=== PATIENT | female | born 1960 | race Caucasian/White ===

== ENCOUNTER → 2017-04-17 | Outpatient (CLI) | payer OTHER ==
[~2017-04-17] VITALS: Ht 152.4 cm; Wt 49.9 kg
[~2017-04-17] MED LIST: BENTYL 20 MG TA20 M1 PO; COZAAR 50 MG TA50 M2 PO; IRON325 PO; METFORMIN HCL500 MG PO; PAXIL10 MG PO; PROAIR RESPICL90 MCG IH; PROTONIX40 M1 PO; REGLAN 10 MG TA10 MG PO; REQUIP XL2 MG PO; ROSUVASTATIN CA20 MG PO; SENOKOT-S1 TA1 PO; SINGULAIR 10 MG10 M1 PO; SPIRIVA INH; TOPROL XL25 MG PO; TRICOR145 MG PO; ZETIA10 MG PO
--- NOTE | ~2017-04-17 | H ---
[facility] [place] [address] HISTORY AND PHYSICAL Name: BRUNO JUARES Room #: REG [facility]#: [id number] Admission: 04/17/17 Attend Phys: Walter Noavk Discharge: Date of : 62 Report #: [id number] THIS REPORT FOR: //name// CC: Walter Miller HISTORY OF PRESENT ILLNESS: This 56-year-old female patient seen in the office for chest pain and non-significant aortic valvular disease. The patient underwent noninvasive evaluation since the office visit and demonstrated abnormal findings suggestive of ischemia. She now presents for cardiac catheterization. PHYSICAL EXAMINATION: HEENT: Normocephalic, atraumatic. Pupils are equal, round, reactive to light and accommodation. Extraocular muscles are intact. Sclerae and conjunctivae are anicteric. NECK: JVD is normal. Carotid upstrokes are bilaterally symmetrical. No bruits are heard. No thyromegaly. No lymphadenopathy. LUNGS: Clear to auscultation. No wheezes, rhonchi or crackles. No CVA tenderness. CARDIAC: Demonstrates regular rhythm with soft systolic murmur. No diastolic murmurs are noted. ABDOMEN: Soft, nontender, nondistended. Normal bowel sounds. EXTREMITIES: Without cyanosis, clubbing or edema. Distal pulses are intact. DTR symmetrical. NEUROLOGIC: Cranial nerves 2-12 are grossly normal and symmetrical. PSYCHIATRIC: Alert, oriented with normal affect. SKIN: Warm and dry. IMPRESSION: Chest pain, atypical in nature but with abnormal noninvasive evaluation. Cardiac catheterization was recommended. and conscious sedation were discussed with the patient, she voices understanding and wishes to proceed. <ELECTRONICALLY SIGNED> By: Walter Novak MD 04/17/17 1235 [id number] [id number] Walter Novak MD /nt
--- NOTE | ~2017-04-17 | CATHLAB ---
[facility] [place] [address] INVASIVE PROCEDURE REPORT Name: MORBRUNO ARABELLA Room #: REG CL [facility]#: [id number] Admission: 04/17/17 Attend Phys: Walter Brooks Discharge: Date of : 62 Date of Service: 04/23/17 0030 Report #: [id number] THIS REPORT FOR: //name// CC: Walter Miller DATE OF SERVICE: 04/17/2017 DATE OF SERVICE: 04/17/2017. PROCEDURES: 1. Left heart catheterization. 2. Left and right coronary angiography. 3. Measurement of left ventricular end diastolic pressures. 4. Supervision of conscious sedation. INDICATIONS: An 56-year-old female patient with chest pain and abnormal noninvasive assessment. DIRECTOR OF STRATEGY & MOBILE: Walter Novak M.D. BRIEF DESCRIPTION OF PROCEDURE: After informed consent was obtained, the patient was brought to the cardiac catheterization laboratory in stable condition. The patient's right groin was prepped and draped in the usual sterile manner after which lidocaine was then instilled. Utilizing a modified Seldinger technique, the right femoral artery was then accessed. Under fluoroscopic visualization using selective coronary catheters, the right and left coronaries were opacified and visualized. The left ventriculogram was likewise imaged per standard protocol with EDP being measured. Subsequent to this, the sheath was removed, hemostasis achieved. The patient tolerated the procedure well. There were no complications. FINDINGS: 1. FLUOROSCOPY: Under fluoroscopic visualization, there was no significant calcific plaquing along the epicardial coronary arteries. Likewise, no significant plaquing on the valvular intramyocardial structures of the heart. 2. HEMODYNAMICS: A. Aortic pressure 172/63. B. Left ventricular end diastolic pressure is 15-20. 3. RHYTHM: The patient's rhythm was sinus throughout the entire procedure. 4. ANGIOGRAPHY: This is a right coronary dominant system. A. Left main is of normal origin and caliber, bifurcates left anterior descending and left circumflex free of high-grade disease. B. Left anterior descending is a moderate small caliber vessel, which has a 65-70% lesion prior to the origin of first diagonal branch. The first diagonal [facility] [address] [place] [address] INVASIVE PROCEDURE REPORT Name: BRUNO JUARES [facility] [id number] Admission: 04/17/17 Attend Phys: Walter Brooks Discharge: Date of : 62 Date of Service: 04/23/17 0030 Report #: [id number] branch has a 60-50% proximal lesion. It then continues in the anterolateral aspect of the heart free of significant disease. The LAD proper then continues on in the anterior interventricular sulcus giving rise to septal and diagonal branches as it hooks the apex and a small caliber vessel. C. Left circumflex is a moderate caliber nondominant vessel, which has a first marginal branch has a 90+ % proximal lesion. It continues on in the lateral aspect of the left ventricle. The circumflex continues in the AV groove giving rise to posterolateral and lateral wall marginal branches which are small to moderate caliber. Prior to this bifurcation, there is a 70%-90% lesion in the circumflex proper, D. RIGHT CORONARY ARTERY: This is a dominant vessel, was totally occluded proximally. Then, it reconstitutes itself via homo and hetero collaterals. It is visualized in the AV groove to the crux of the heart, giving rise to a small diffusely in the posterior descending artery. There is evidence of significant left to right collaterals. IMPRESSION: 1. Coronary artery disease, severe, 3-vessel. 2. Abnormal hemodynamics. 3. Recommend a surgical consultation to determine suitability of improved long-term result with surgical revascularization versus percutaneous. <ELECTRONICALLY SIGNED> By: Walter Novak MD 04/23/17 1747 0030 1239 Walter Novak MD /nt
--- NOTE | ~2017-04-17 | HC ---
[facility] [place] [address] CONSULTATION Name: BRUNO JUARES [facility] [id number] Admission: 04/17/17 Attend Phys: Walter Novak Discharge: Date of : 62 Report #: [id number] THIS REPORT FOR: //name// CC: Walter Miller DATE OF SERVICE: 04/17/2017 We were asked to see the patient by Dr. Novak. The patient has just had a cardiac catheterization. The patient is a 56-year-old with a history of anemia. This seems to have been started with the workup for anemia in December when the patient was transfused with 3 units of blood. At some point, the patient had a stress test. Perfusion scan showed inferoseptal and anteroseptal wall defect. According to the note, the patient states that she had some pressure in the chest occasionally, but she denies having any angina to me. There is no history of shortness of breath on exertion or orthopnea nor syncope. Cardiac catheterization today is rather showing 65% LAD, 50% diagonal, 90% OM1, 70% OM2, and 100% right coronary artery stenosis. The first marginal lesion is a very discrete lesion ____ (other than the right coronary occlusion, of course). No ventriculogram was done. PAST MEDICAL HISTORY: Significant for diabetes mellitus, maintained on oral agent. The patient also has hypercholesterolemia, hypertension, and COPD. HOME MEDICATIONS: Includes Flonase, ProAir, aspirin, multivitamin, paroxetine, Zetia, Spiriva, metoclopramide, losartan, fenofibrate, Crestor, pantoprazole, montelukast, metformin, potassium, and Lasix. Other medical history includes irritable bowel, history of breast cancer. It appears that an echo done on February 08 showed an ejection fraction of 35-40%, moderate concentric left ventricular hypertrophy. FAMILY HISTORY: Significant for congestive heart failure in mother, one brother had open heart surgery in 2008. We note that this patient has had right mastectomy with breast implant in 2014. SOCIAL HISTORY: The patient is a longtime smoker, continues this habit. ALLERGIES: CODEINE causes dysphoria, SULFA causes rash, BIAXIN causes rash, NIASPAN causes rash, WALNUTS causes roof of the mouth to burn and swell.. REVIEW OF SYSTEMS: CONSTITUTIONAL: Positive for weight loss. The patient denies fatigue, fever, chills, sweats. [facility] [address] [place] [address] CONSULTATION Name: BRUNO JUARES Room #: REG CL Tk#: [id number] Admission: 04/17/17 Attend Phys: Walter Novak Discharge: Date of : 62 Report #: [id number] EYES: No recent vision loss. EARS: Chronic hearing loss from Meniere's. RESPIRATORY: No shortness of breath, no sputum production. CARDIAC: Denies to me having angina, heart failure symptoms, shortness of breath on exertion or fluid retention. GASTROINTESTINAL: We note history of GI blood loss, but this was not obvious with no melena or bright red blood. No nausea, vomiting, or abdominal pain. GENITOURINARY: No dysuria, no hematuria. MUSCULOSKELETAL: No joint pain or muscle pain. SKIN: Skin rash history positive. ENDOCRINE: No hot or cold intolerance. NEUROLOGIC: No numbness or tingling. No motor or sensory loss. HEMATOLOGIC: No easy bruisability. We do note anemia. PHYSICAL EXAMINATION: VITAL SIGNS: Blood pressure earlier 172/63, heart rate 74, respiratory rate 18, O2 sat 95%. HEENT: Normocephalic. Pupils are round, equal. Gaze conjugate. Wearing hearing aid in the right ear. NECK: No cervical mass, no bruit. CHEST: Clear to auscultation. HEART: Rhythm regular, no murmur. ABDOMEN: Soft, no mass, no tenderness. EXTREMITIES: No clubbing, cyanosis, or edema, 3+ distal pulses, dorsalis pedis bilaterally. No obvious saphenous vein problems. SKIN: No rash or infection. MUSCULOSKELETAL: No bone or joint dyssymmetry or deformity. NEUROLOGIC: No motor or sensory dysfunction. PSYCHIATRIC: Shows insight into problem. Mood is neither elevated nor depressed. IMPRESSION: The patient has coronary artery disease. The most severe disease is the occluded right, and there is a discrete high-grade first marginal lesion. Otherwise, the disease is not particularly focal, in my opinion. In the absence of symptoms, maybe a less aggressive approach would be appropriate as the first step in addition to risk factor modification. I will discuss this with Dr. Novak before we come to a final recommendation. Risks and details of surgery were discussed with the patient and family, and they understand that a final recommendation will be forthcoming. Thank you for the consult. <ELECTRONICALLY SIGNED> By: Andrea Chavez MD 04/19/17 0946 1412 1012 Andrea Chavez MD /nt
[2017-04-17 08:32] VITALS: BP 151/73
[2017-04-17 08:36] LABS: HEMATOCRIT 49.9 % (37.0-47.0); HEMOGLOBIN 16.6 gm/dL (12.0-15.0); MCH 27.1 pg (26.0-34.0); MCHC 33.2 g/dL (28.0-37.0); MCV 81.7 fL (80.0-100.0); RBC 6.11 mil/uL (4.20-5.00); RDW 18.1 % (10.5-14.5); WBC 9.6 thou/uL (4.0-11.0)
[2017-04-17 08:46] LABS: CALCIUM 10.1 mg/dL (8.5-10.1); CREATININE 0.9 mg/dL (0.6-1.0); POTASSIUM 4.3 mmol/L (3.5-5.1)
== END | disposition home or self-care (01) ==
LOC: CATH 07:58
PROVIDERS: Internal Medicine
DX: I25.10 Atherosclerotic heart disease of native coronary artery without angina pectoris (principal); D64.9 Anemia, unspecified; E11.9 Type 2 diabetes mellitus without complications; E78.00 Pure hypercholesterolemia, unspecified; I10 Essential (primary) hypertension; J44.9 Chronic obstructive pulmonary disease, unspecified; Z85.3 Personal history of malignant neoplasm of breast; Z82.49 Family history of ischemic heart disease and other diseases of the circulatory system; Z98.890 Other specified postprocedural states; F17.200 Nicotine dependence, unspecified, uncomplicated